=== PATIENT | female | born 1985 | race Caucasian/White ===

== ENCOUNTER → 2018-01-28 | Outpatient (CLI) | payer OTHER ==
[2017-08-19 15:29] VITALS: BMI 22.5
[~2018-01-28] MED LIST: ACET-1966 PO; ACET500T68 PO; ALBU8.5H IH; AMOX-556 PO; CETI10CA8 PO; DOCO200C PO; ESOM40CA42 PO; FLUC150T40 PO; IBUP600T22 PO; IBUP800T37 PO; LOR5/325 PO; OXYC-373 PO; PROM-110 PO
== END ==
LOC: LAB 16:21
PROVIDERS: ATTEND Student in an Organized Health Care Education/Training Program
DX: N89.8 Other specified noninflammatory disorders of vagina (principal)
CPT/HCPCS: 87210

== ENCOUNTER → 2018-01-29 | Outpatient (CLI) | payer OTHER ==
[2017-08-19 15:29] VITALS: BMI 22.5
== END ==
LOC: LAB 11:35
PROVIDERS: ATTEND Nurse Practitioner Family
DX: Z20.818 Contact with and (suspected) exposure to other bacterial communicable diseases (principal)
CPT/HCPCS: 87081

== ENCOUNTER → 2018-06-14 | Outpatient (CLI) | payer OTHER ==
[2017-08-19 15:29] VITALS: BMI 22.5
[~2018-06-14] MED LIST changes: +ALB18R INH; +ALPR-429 PO; +METH4TAB66 PO; +PRED20TA6 PO; +SULF-198 PO
== END ==
LOC: LAB 14:34
PROVIDERS: ATTEND Nurse Practitioner Primary Care
DX: J02.9 Acute pharyngitis, unspecified (principal)
CPT/HCPCS: 87081

== ENCOUNTER → 2018-07-28 | Outpatient (CLI) | payer OTHER ==
[2017-08-19 15:29] VITALS: BMI 22.5
[~2018-07-28] MED LIST changes: +AMOX-559 PO; +GABA-549 PO; +PENI-24 PO
== END ==
LOC: LAB 16:37
PROVIDERS: ATTEND Obstetrics & Gynecology
DX: Z01.818 Encounter for other preprocedural examination (principal); R10.2 Pelvic and perineal pain
CPT/HCPCS: 81001; 87088

== ENCOUNTER → 2018-10-25 | Outpatient (CLI) | payer OTHER ==
[2017-08-19 15:29] VITALS: BMI 22.5
[~2018-10-25] MED LIST changes: +CIPR-214 PO; +FLUC200T56 PO; +HYDR-653 PO; +MULT-1335 PO
== END ==
LOC: LAB 13:34
PROVIDERS: ATTEND Student in an Organized Health Care Education/Training Program
DX: T81.40XA Infection following a procedure, unspecified, initial encounter (principal); B96.89 Other specified bacterial agents as the cause of diseases classified elsewhere
CPT/HCPCS: 87071; 87077; 87186

== ENCOUNTER 2019-01-22 12:47 | Emergency (ER) | payer OTHER ==
[2017-08-19 15:29] VITALS: Wt 57.6 kg
--- NOTE | 2019-01-22 12:51 | ER Report ---
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 Feels as if she has a yeast infection in her buttocks area. States the area feels "raw" and choe. No dysuria. No fever/chills. Has had previous episodes of the same while taking abx. No abdominal pain other than typical post-op pain. Remainder of the 14 system rev: Yes Allergies: Coded Allergies: metronidazole (Verified Allergy, Intermediate, RASH, 07/20/17) Uncoded Allergies: Dermabond (Adverse Reaction, Severe, blistering at site, 04/21/18) Home Meds Active Scripts Nystatin 100,000 Unit/Gm Top Powder (NYSTATIN 100,000 UNIT/GM TOP POWDER) 15 Gm Powder, 15 GM TP 1-2XD for 10 Days, #1 TUBE Prov:STEPHANIE NEAL MD 01/22/19 Fluconazole (DIFLUCAN) 200 Mg Tablet, 200 MG PO QDAY for 10 Days, #11 Take 2 tabs today, and then one tab once a day for the next 9 days Prov:STEPHANIE NEAL MD 01/22/19 Reported Medications Docusate Sodium (COLACE) 100 Mg Capsule, 100 MG PO BID, CAPSULE 01/22/19 Oxycodone Hcl (ROXICODONE) 15 Mg Tablet, 5 MG PO Q4H 01/22/19 Oxybutynin Chloride (OXYBUTYNIN CHLORIDE) 5 Mg Tablet, 5 MG PO TID, TAB 01/22/19 Nitrofurantoin Monohyd/M-Cryst (MACROBID 100 MG CAPSULE) 100 Mg Capsule, 100 MG PO BID, CAPSULE 01/22/19 Multivitamin With Minerals (MULTIPLE VITAMIN) 1 Each Tablet, 1 EACH PO, TAB 10/15/18 Acetaminophen (TYLENOL) 325 Mg Tablet, 1 TAB PO PRN, TAB 12/10/17 Discontinued Reported Medications Docusate Sodium (COLACE) 100 Mg Capsule, 100 MG PO DAILY, CAPSULE 01/22/19 Discontinued Scripts Ciprofloxacin 500 Mg Tab (CIPROFLOXACIN 500 MG TAB) 500 Mg Tablet, 500 MG PO BID for 7 Days, #14 TAB 0 Refills Prov:HERBERT PLEITEZ DO 10/27/18 Fluconazole (FLUCONAZOLE) 200 Mg Tablet, 200 MG PO DIRECTED, #11 TAB 0 Ref ills TAKE 2 TABS TODAY, THEN 1 TAB DAILY FOR 9 DAYS Prov:HERBERT PLEITEZ DO 10/25/18 Reviewed Nurses Notes: Yes Old Medical Records Reviewed: Yes Hx Smoking: No Smoking Status: Never Smoker Exposure to Second Hand Smoke?: No Hx Substance Use Disorder: No Hx Alcohol Use: No Constitutional Vital Sign - Last 24 Hours 01/22/19 12:54 Temp 98.4 Pulse 71 Resp 16 B/P (MAP) 115/77 Pulse Ox 94 O2 Delivery Room Air Physical Exam General Appearance: The patient is alert, has no immediate need for airway protection and no current signs of toxicity. Eyes: Pupils equal and round no injection. Respiratory: Chest is non tender, lungs are clear to auscultation. Cardiac: regular rate and rhythm Gastrointestinal: Abdomen is soft and non tender, no masses, bowel sounds normal. Post-op drain in place. Skin: Erythematous rash with satellite lesions in butoocks region. Rash spares perineum. Medical Decision Making ED Course/Re-evaluation ED Course Yeast infection of the buttocks in the setting of abx use. I followed the same regimen for Diflucan given to her previously by Dr. Pleitez. Pt. otherwise without acute complaints. Will follow up with PCM. Decision to Disposition Date: Jan 23, 2019 Decision to Disposition Time: 14:00 Depart Departure Latest Vital Signs Vital Signs Date Time Temp Pulse Resp B/P (MAP) Pulse Ox O2 Delivery O2 Flow Rate FiO2 01/22/19 12:54 98.4 71 16 115/77 94 Room Air Impression: Primary Impression: Yeast dermatitis Condition: Improved Disposition: HOME OR SELF-CARE Referrals: ABAD EVANS MD (PCP) New Scripts Nystatin 100,000 Unit/Gm Top Powder (NYSTATIN 100,000 UNIT/GM TOP POWDER) 15 Gm Powder 15 GM TP 1-2XD for 10 Days, #1 TUBE Prov: STEPHANIE NEAL MD 01/22/19 Fluconazole (DIFLUCAN) 200 Mg Tablet 200 MG PO QDAY for 10 Days, #11 Take 2 tabs today, and then one tab once a day for the next 9 days Prov: STEPHANIE NEAL MD 01/22/19 Patient Instructions: Skin Yeast Infection (ED) STEPHANIE NEAL MD Jan 22, 2019 12:51
[2019-01-22 12:54] VITALS: BP 115/77
[2019-01-22] MEDS ORDERED: DOCU-416 PO ×2 (13:03→13:12)
[2019-01-22] MEDS ORDERED: NITR-105 PO (13:07)
[2019-01-22] MEDS ORDERED: OXYB5TAB86 PO (13:09)
[2019-01-22] MEDS ORDERED: OXYC-966 PO (13:11)
[2019-01-22] MEDS ORDERED: NYST15PO4 TP (13:39)
[2019-01-22] MEDS ORDERED: FLUC200T52 PO (13:39)
== END 2019-01-22 13:53 | disposition home or self-care (01) ==
LOC: ER 12:52
DX: L30.8 Other specified dermatitis (principal)
CPT/HCPCS: 99281

== ENCOUNTER 2019-01-28 09:23 | Emergency (ER) | payer OTHER ==
[2017-08-19 15:29] VITALS: Wt 68.0 kg
[~2019-01-28 09:23] MED LIST changes: +DOCU-416 PO; +FLUC200T52 PO; +NITR-105 PO; +NYST15PO4 TP; +OXYB5TAB86 PO; +OXYC-966 PO
--- NOTE | 2019-01-28 09:39 | ER Report ---
History and Physical Time Seen By MD: 09:38 HPI/ROS CHIEF COMPLAINT: Constipation HISTORY OF PRESENT ILLNESS: 33 female 2 weeks status post vaginal surgery comes emergency room constipated she has had a surgical procedures in the past which resulted in constipation she has OxyContin codon and sent home however she is not taking them frequently since she has had a bowel movement about 45 days ago which was very hard very difficult to pass eyes had come to emergency room and had medications administered here to enable her to have bowel movements patient has some mild suprapubic tenderness and round this incision site obvious signs of infection patient's denying chest pain shortness of breath nausea vomiting diarrhea fever or chills REVIEW OF SYSTEMS: Respiratory: No cough, no dyspnea. Cardiovascular: No chest pain, no palpitations. Gastrointestinal: Constipation Musculoskeletal: [No back pain.] Remainder of the 14 system rev: Yes Allergies: Coded Allergies: metronidazole (Verified Allergy, Intermediate, RASH, 01/28/19) Uncoded Allergies: Dermabond (Adverse Reaction, Severe, blistering at site, 04/21/18) Home Meds Active Scripts Nystatin 100,000 Unit/Gm Top Powder (NYSTATIN 100,000 UNIT/GM TOP POWDER) 15 Gm Powder, 15 GM TP 1-2XD for 10 Days, #1 TUBE Prov:STEPHANIE NEAL MD 01/22/19 Fluconazole (DIFLUCAN) 200 Mg Tablet, 200 MG PO QDAY for 10 Days, #11 Take 2 tabs today, and then one tab once a day for the next 9 days Prov:STEPHANIE NEAL MD 01/22/19 Reported Medications Docusate Sodium (COLACE) 100 Mg Capsule, 100 MG PO BID, CAPSULE 01/22/19 Oxycodone Hcl (ROXICODONE) 15 Mg Tablet, 5 MG PO Q4H 01/22/19 Oxybutynin Chloride (OXYBUTYNIN CHLORIDE) 5 Mg Tablet, 5 MG PO TID, TAB 01/22/19 Multivitamin With Minerals (MULTIPLE VITAMIN) 1 Each Tablet, 1 EACH PO, TAB 10/15/18 Discontinued Reported Medications Nitrofurantoin Monohyd/M-Cryst (MACROBID 100 MG CAPSULE) 100 Mg Capsule, 100 MG PO BID, CAPSULE 01/22/19 Acetaminophen (TYLENOL) 325 Mg Tablet, 1 TAB PO PRN, TAB 12/10/17 Docusate Sodium (COLACE) 100 Mg Capsule, 100 MG PO DAILY, CAPSULE 01/22/19 Discontinued Scripts Ciprofloxacin 500 Mg Tab (CIPROFLOXACIN 500 MG TAB) 500 Mg Tablet, 500 MG PO BID for 7 Days, #14 TAB 0 Refills Prov:HERBERT LARA DO 10/27/18 Fluconazole (FLUCONAZOLE) 200 Mg Tablet, 200 MG PO DIRECTED, #11 TAB 0 Refills TAKE 2 TABS TODAY, THEN 1 TAB DAILY FOR 9 DAYS Prov:HERBERT LARA DO 10/25/18 Reviewed Nurses Notes: Yes Old Medical Records Reviewed: Yes Hx Smoking: No Smoking Status: Never Smoker Exposure to Second Hand Smoke?: No Hx Substance Use Disorder: No Hx Alcohol Use: No Constitutional Vital Sign - Last 24 Hours 01/28/19 01/28/19 01/28/19 01/28/19 09:35 09:41 10:00 10:30 Temp 98.7 Pulse 89 83 84 Resp 18 B/P (MAP) 118/90 (99) 118/90 107/73 (84) 107/70 (82) Pulse Ox 98 97 96 O2 Delivery Room Air Physical Exam General Appearance: [The patient is alert, has no immediate need for airway protection and no current signs of toxicity.] [ ] Eyes: Pupils equal and round no injection. Respiratory: Chest is non tender, lungs are clear to auscultation. Cardiac: regular rate and rhythm [ ] Gastrointestinal: Abdomen examination does demonstrate a well-healed incisional scar and superpubic region with a catheter placed no obvious signs of infection pus or discharge Musculoskeletal: Neck: Neck is supple and non tender. Extremities have full range of motion and are non tender. Skin: No rashes or lesions. Rectal exam deferred at this time DIFFERENTIAL DIAGNOSIS: After history and physical exam differential diagnosis was considered for constipation postoperative small bowel instruction Medical Decision Making Data Points Laboratory Hematology Test 01/28/19 09:46 Urine Color Yellow Urine Clarity Clear Urine pH 5.0 pH (4.8-9.5) Urine Specific [place] 1.018 Urine Protein Negative mg/dL (NEGATIVE) Urine Glucose (UA) Negative mg/dL (NEGATIVE) Urine Ketones Trace mg/dL (NEGATIVE) Urine Blood Small (NEGATIVE) Urine Nitrite Negative (NEGATIVE) Urine Bilirubin Negative (NEGATIVE) Urine Urobilinogen Negative mg/dL (0.2-1.9) Urine Leukocyte Esterase Small (NEGATIVE) Urine RBC 6 /HPF (0-2/HPF) Urine WBC 12 /HPF (0-5/HPF) Urine Squamous Epithelial Cells None /LPF (NONE-FEW) Urine Bacteria Negative /HPF (NONE-FEW) Urine Hyaline Casts Few /LPF (NONE-FEW) Urine Mucus Few /HPF (NONE-FEW) Chemistry Test 01/28/19 09:46 Urine Color Yellow Urine Clarity Clear Urine pH 5.0 pH (4.8-9.5) Urine Specific [place] 1.018 Urine Protein Negative mg/dL (NEGATIVE) Urine Glucose (UA) Negative mg/dL (NEGATIVE) Urine Ketones Trace mg/dL (NEGATIVE) Urine Blood Small (NEGATIVE) Urine Nitrite Negative (NEGATIVE) Urine Bilirubin Negative (NEGATIVE) Urine Urobilinogen Negative mg/dL (0.2-1.9) Urine Leukocyte Esterase Small (NEGATIVE) Urine RBC 6 /HPF (0-2/HPF) Urine WBC 12 /HPF (0-5/HPF) Urine Squamous Epithelial Cells None /LPF (NONE-FEW) Urine Bacteria Negative /HPF (NONE-FEW) Urine Hyaline Casts Few /LPF (NONE-FEW) Urine Mucus Few /HPF (NONE-FEW) Urinalysis Test 01/28/19 09:46 Urine Color Yellow Urine Clarity Clear Urine pH 5.0 pH (4.8-9.5) Urine Specific [place] 1.018 Urine Protein Negative mg/dL (NEGATIVE) Urine Glucose (UA) Negative mg/dL (NEGATIVE) Urine Ketones Trace mg/dL (NEGATIVE) Urine Blood Small (NEGATIVE) Urine Nitrite Negative (NEGATIVE) Urine Bilirubin Negative (NEGATIVE) Urine Urobilinogen Negative mg/dL (0.2-1.9) Urine Leukocyte Esterase Small (NEGATIVE) Urine RBC 6 /HPF (0-2/HPF) Urine WBC 12 /HPF (0-5/HPF) Urine Squamous Epithelial Cells None /LPF (NONE-FEW) Urine Bacteria Negative /HPF (NONE-FEW) Urine Hyaline Casts Few /LPF (NONE-FEW) Urine Mucus Few /HPF (NONE-FEW) ED Course/Re-evaluation ED Course Medical decision making 31-year-old female who comes in with constipation from a KUB GoLYTELY was administered with success patient was able to have successful bowel movements multiple history feeling significantly better B discharge shon gnosis constipation Decision to Disposition Date: Jan 28, 2019 Decision to Disposition Time: 13:47 Depart Departure Latest Vital Signs Vital Signs Date Time Temp Pulse Resp B/P (MAP) Pulse Ox O2 Delivery O2 Flow Rate FiO2 01/28/19 10:30 84 107/70 (82) 96 01/28/19 09:41 98.7 18 Room Air Impression: Primary Impression: Constipation Condition: Improved Disposition: HOME OR SELF-CARE Referrals: ABAD EVANS MD (PCP) 5 Days Patient Instructions: Constipation (ED) FLORY VELAZCO MD Jan 28, 2019 09:39
[2019-01-28] MEDS ORDERED: PEG (High)/E-LYTE SOLN 4000 ML PO ONE (09:40)
--- NOTE | 2019-01-28 10:24 | RADIOLOGY IMAGING REPORT ---
FACILITY: [facility] - [place] PATIENT NAME: Tana Bhatia : 1985 MR: [id number] V: [id number] EXAM DATE: ORDERING PHYSICIAN: FLORY VELAZCO TECHNOLOGIST: Location: [facility] [place] Patient: Tana Bhatia : 1985 Visit/Account:[id number] Date of Sevice: 01/28/2019 Exam type: KUB SINGLE VIEW ABDOMEN History: Surgery two months ago and lower abdomen. Constipation Comparison: CT July 20, 2017. Findings: There is mild to moderate amount of fecal material seen in the colon. The bowel gas pattern is other novak nonspecific. There are surgical clips right upper quadrant of abdomen. Suprapubic catheter pro jects over the lower pelvis.. No evidence of organomegaly. The spina bifida occulta of S1 IMPRESSION: 1. Mild to moderate amount of fecal material seen throughout colon. Bowel gas pattern is otherwise nonspecific Report Dictated By: Monika Galeana MD at 01/28/2019 10:18 AM Report E-Signed By: Monika Galeana MD at 01/28/2019 10:20 AM WSN:[email or web address]
[2019-01-28 10:30] VITALS: BP 107/70
== END 2019-01-28 13:58 | disposition home or self-care (01) ==
LOC: ER 09:46
DX: K59.00 Constipation, unspecified (principal)
CPT/HCPCS: 74018; 81001; 99283

== ENCOUNTER → 2019-02-11 | Outpatient (CLI) | payer OTHER ==
[2017-08-19 15:29] VITALS: BMI 22.5
== END ==
LOC: LAB 17:06
PROVIDERS: ATTEND Urology
DX: R10.2 Pelvic and perineal pain (principal); R10.9 Unspecified abdominal pain; Z93.59 Other cystostomy status; B96.89 Other specified bacterial agents as the cause of diseases classified elsewhere
CPT/HCPCS: 81001; 87077; 87088